=== PATIENT | female | born 1945 | race Caucasian/White ===

== ENCOUNTER 2022-01-15 13:37 | Outpatient (CLI) | payer MEDICARE | END 2022-01-15 13:38 | disposition home or self-care (01) | LOC: CSHMAMMO 13:37 | PROVIDERS: ATTEND Family Medicine | DX: Z13.820 Encounter for screening for osteoporosis (principal); Z78.0 Asymptomatic menopausal state; M85.89 Other specified disorders of bone density and structure, multiple sites | CPT/HCPCS: 77063; 77067; 77080 ==

== ENCOUNTER 2023-02-25 12:17 | Outpatient (CLI) | payer MEDICARE | END 2023-02-25 12:18 | disposition home or self-care (01) | LOC: CSHMAMMO 12:17 | PROVIDERS: ATTEND Family Medicine | DX: Z12.31 Encounter for screening mammogram for malignant neoplasm of breast (principal); Z80.3 Family history of malignant neoplasm of breast; Z98.82 Breast implant status | CPT/HCPCS: 77063; 77067 ==

== ENCOUNTER 2023-06-23 11:53 | Outpatient (CLI) | payer MEDICARE | END 2023-06-23 11:54 | disposition home or self-care (01) | LOC: CSHRAD 11:53 | PROVIDERS: ATTEND Specialist | DX: Z01.818 Encounter for other preprocedural examination (principal); Z95.0 Presence of cardiac pacemaker | CPT/HCPCS: 71045 ==